=== PATIENT | female | born 1940 | race Caucasian/White ===

== ENCOUNTER 2017-12-26 16:14 | Emergency (ER) | payer MEDICARE ==
[~2017-12-26] VITALS: Ht 157.5 cm; Wt 79.4 kg
[2017-12-26] MEDS ORDERED: HYDROXYZINE HCL50 MG PO (16:36)
[2017-12-26] MEDS ORDERED: SIMVASTATIN20 MG PO (16:36)
[2017-12-26] MEDS ORDERED: ZESTRIL40 MG PO (16:36)
[2017-12-26] MEDS ORDERED: NEURONTIN300 MG PO (16:41)
[2017-12-26] MEDS ORDERED: VALTREX1000 MG PO (16:41)
== END 2017-12-26 16:52 | disposition home or self-care (01) ==
LOC: ED 16:14
DX: B02.9 Zoster without complications (principal)
CPT/HCPCS: 99283